=== PATIENT | female | born 1990 | race Caucasian/White ===

== ENCOUNTER 2016-10-16 14:44 | Emergency (ER) | payer OTHER ==
[2016-10-16 15:56] LABS: BASOPHILS 0.4 % (0.0-2.0); EOSINOPHILS 0.9 % (0.0-6.0); EOSINOPHILS# 0.1 X 10^3uL (0.0-0.4); LYMPHOCYTES 7.1 % (20.0-40.0); LYMPHOCYTES# 0.5 X 10^3uL (0.8-3.8); MEAN CELL VOLUME 84.5 fL (80.0-100.0); MEAN CORPUS. HGB CONCENTRATION 34.8 g/dL (32.0-36.0); MEAN CORPUSCULAR HEMOGLOBIN 29.4 pg (29.0-35.0); MEAN PLATELET VOLUME 10.1 fL (7.4-10.4); MONOCYTES 6.5 % (2.0-10.0); MONOCYTES# 0.5 X 10^3uL (0.2-1.0); NEUTROPHILS 85.1 % (54.0-75.0); PLATELET COUNT 233 X 10^3uL (130-440); RED BLOOD COUNT 5.09 X 10^6uL (4.20-6.10); RED CELL DISTRIBUTION WIDTH 12.1 % (11.5-14.5); WHITE BLOOD COUNT 7.1 X 10^3uL (3.9-10.7)
[2016-10-16 16:05] LABS: BLOOD UREA NITROGEN 12 mg/dL (7-17); CALCIUM 8.5 mg/dL (8.4-10.2); CHLORIDE 103 mmol/L (98-107); CREATININE 0.8 mg/dL (0.5-1.0); EST GLOMERULAR FILTRATION RATE > 60 mL/min; GLUCOSE 101 mg/dL (70-100); MAGNESIUM 1.7 mg/dL (1.6-2.3); POTASSIUM 3.5 mmol/L (3.5-5.1); SODIUM 139 mmol/L (137-145)
[2016-10-16] MEDS ORDERED: FAMOTIDINE IN SALINE, ISO-OSM 50 ML IV ONE (16:21)
[2016-10-16] MEDS ORDERED: ONDANSETRON HCL 4 MG/2 ML VIAL ONE (16:21)
[2016-10-16] MEDS ORDERED: ACETAMINOPHEN 325 MG TABLET PO ONE (18:18)
[2016-10-16] MEDS ORDERED: DICYCLOMINE HCL 10 MG CAPSULE PO ONE (18:18)
--- NOTE | 2016-10-16 18:35 | ER NURSING DOCUMENTATION ---
Nurse's Notes [facility] Name:Fernanda Love Age:26 yrs Sex:Female :1990 Arrival Date:10/16/2016 Time:14:44 Bed3 Private MD: Diagnosis:Dysentery;Dehydration;Abdominal Cramps Presentation: 10/16 14:55 Acuity: CHEVY 3 lc 15:03 Presenting complaint: Patient states: THINKS SHE GOT FOOD POISONING ON WEDNESDAY, C/O SL lc NAUSEA AND DIARRHEA SINCE. ABD CRAMPING WITH EPISODES. NO FEVER OR OTHER SYMPTOMS. TOOK IMMODIUM THIS AM. Transition of care: patient was not received from another setting of care. 15:03 Method Of Arrival: Private Vehicle Triage Assessment: 15:07 General: Appears in no apparent distress, Behavior is cooperative. Pain: Complains of lc pain in abdomen Pain At worst was 5 out of 10 on a pain scale. Quality of pain is described as crampy, Pain began 2-3 days ago. GI: Abdomen is non- distended Bowel sounds hypoactive in right upper quadrant, left upper quadrant, right lower quadrant and left lower quadrant Abd is soft. Derm: Skin is pink, warm & dry. Historical: - Allergies: No known drug Allergies; - Home Meds: 1. Loestrin 06/19 (21) oral - PMHx: None; - PSHx: None; - Tetanus: < 10 years. - Ebola Screening: : Patient negative for fever greater than or equal to 101.5 degrees Fahrenheit, and additional compatible Ebola Virus Disease symptoms. Patient denies exposure to infectious person. Patient denies travel to an Ebola-affected area in the 21 days before illness onset. No symptoms or risks identified at this time. . - Immunization history: Flu Vaccine >1 year. - Social history: Smoking status: Patient states was never smoker of tobacco. Screenin:08 Infectious Disease Risk None. Abuse screen: Denies threats or abuse. Denies injuries lc from another. Nutritional screening: No deficits noted. Assessment: 15:08 See Triage Assessment done by same RN. lc 17:53 Reassessment: Patient states feeling better. Patient states symptoms have improved. lc STILL UNABLE TO VOID, 2ND IV, NAUSEA IMPROVED, TOOK CRACKERS AND SPRITE PO NOW.. Vital Signs: 14:53 BP 132 / 89; Pulse 110; Resp 16; Temp 98.9; Pulse Ox 95% ; Weight 54.43 kg; Height 5 jt ft. 2 in. (157.48 cm); Pain 6/10; 16:31 Pulse 96; Resp 16; Pulse Ox 93% ; Pain 2/10; lc 18:33 BP 107 / 59; Pulse 103; Resp 15; Pulse Ox 93% on R/A; Pain 3/10; mk2 14:53 Body Mass Index 21.95 (54.43 kg, 157.48 cm) jt ED Course: 14:46 Patient arrived in ED. lm3 14:53 Iftikhar Garcia MD is Attending Physician. jm 14:55 Naomi Powell, RN is Primary Nurse. 14:55 Triage completed. 15:08 Valuables sent with patient Patient has correct armband on for positive identification. lc Placed in gown. Bed in low position. Call light in reach. Side rails up X 1. Adult w/ patient. Warm blanket given. 15:44 Labs drawn. (by ED staff). Sent per order to lab. Guaiac Collected Guaiac Positive. Physician notified. Inserted peripheral IV: 22 gauge in right antecubital area and blood collected. 15:50 Door closed. Noise minimized. Lights dimmed. Warm blanket given. rs 18:31 Primary Nurse role handed off by Naomi Powell, RN mk2 18:31 Melissa Childs, RN is Primary Nurse. mk2 Administered Medications: 15:46 Drug: NS 0.9% (20 ml/kg) 1000 ml; {Note: 2nd bag hung.} Route: IV; Rate: bolus; Infused lc Over: 1 hrs; Site: right antecubital; Delivery: Powell Tubing; 16:32 Follow up: IV Status: Completed infusion; IV Intake: 1000ml lc 16:10 Drug: Zofran 4 mg; Route: IVP; Infused Over: 2 mins; Site: right hand; lc 16:33 Follow up: Response: Nausea is decreased lc 16:14 Drug: Pepcid 20 mg; Route: IVPB; Infused Over: 15 mins; Site: right antecubital; lc 16:32 Follow up: IV Status: Completed infusion; IV Intake: 100ml lc 17:32 Drug: NS 0.9% 1000 ml; Route: IV; Rate: 1000 ml/hr; Site: right antecubital; mk2 18:32 Follow up: IV Status: Completed infusion; IV Intake: 1000ml mk2 18:08 Drug: Tylenol 975 mg; Route: PO; rs 18:31 Follow up: Response: Pain is decreased mk2 18:09 Drug: Bentyl 10 mg; Route: PO; rs 18:31 Follow up: Response: Pain is decreased mk2 Intake: 16:32 IV: 1000ml; Total: 1000ml. lc 16:32 IV: 100ml; Total: 1100ml. lc 18:32 IV: 1000ml; Total: 2100ml. 2 Outcome: 18:09 Discharge ordered by . rina 18:33 Discharged to home ambulatory. mk2 18:33 Condition: improved 18:33 Discharge instructions given to patient, Instructed on discharge instructions, follow up and referral plans. medication usage, Prescriptions given X 2. 18:33 IV D/Colt 18:34 Patient left the ED. 2 10/17 12:16 Discharge F/U Call: Unable to reach: no answer st 12:52 Discharge F/U Call: Unable to reach: no answer st Signatures: Ninoska Gordillo RN RN Ciarra Hogue RN RN Naomi Jackson RN RN Iftikhar Del Real MD MD jm Kruger, Meg, RN RN [facility] Geno Bates Lisa lm3
--- NOTE | 2016-10-16 18:35 | ER PHYSICIAN DOCUMENTATION ---
Physician Documentation [facility] Name:Fernanda Love Age:26 yrs Sex:Female :1990 Arrival Date:10/16/2016 Time:14:44 Bed3 Private MD: Iftikhar Smith Disposition: 10/16/16 18:09 Discharged to Home/Self Care. Impression: Dysentery, Dehydration, Abdominal Cramps. - Condition is Good. - Discharge Instructions: DIARRHEA, Unk Cause (Adult) Report Pendg. - Prescriptions for Bentyl 20 mg Oral Tablet - take 1 tablet by ORAL route every 6 hours As needed; 20 tablet. Zofran 4 mg Oral Tablet - take 1-2 tablet by ORAL route every 4-6 hours As needed; 10 tablet. - Medical Reconciliation form form. - Follow up: Private Physician; When: As needed; Reason: Continuance of care. - Problem is new. - Symptoms have improved. HPI: 10/16 16:06 This 26 yrs old Female presents to ER via Private Vehicle with complaints of jm Diarrhea. 16:10 The patient presents to the emergency department with nausea, with diarrhea, with jm associated abdominal pain, of the suprapubic area, right lower quadrant and left lower quadrant. Onset: The symptom(s)/episode began/occurred today. Possible causes: unknown. Associated signs and symptoms: Pertinent positives: abdominal pain, diarrhea, GI bleeding. Severity of symptoms: in the emergency department the symptoms are unchanged. The patient has not experienced similar symptoms in the past. The patient has not recently seen a physician. Historical: - Allergies: No known drug Allergies; - Home Meds: 1. Loestrin 06/19 (21) oral - PMHx: None; - PSHx: None; - Tetanus: < 10 years. - Ebola Screening: : Patient negative for fever greater than or equal to 101.5 degrees Fahrenheit, and additional compatible Ebola Virus Disease symptoms. Patient denies exposure to infectious person. Patient denies travel to an Ebola-affected area in the 21 days before illness onset. No symptoms or risks identified at this time. . - Immunization history: Flu Vaccine >1 year. - Social history: Smoking status: Patient states was never smoker of tobacco. ROS: 16:12 Constitutional: Positive for fatigue, malaise, Negative for fever. jm 16:12 Abdomen/GI: Positive for nausea, diarrhea, abdominal cramps, Negative for vomiting. 16:12 : Negative for urinary symptoms, urinary frequency. 16:12 Neuro: Negative for dizziness, headache. 16:12 Psych: Negative for drug dependence, alcohol dependence. Exam: 16:12 Constitutional: The patient appears alert, awake, comfortable. 16:12 Cardiovascular: Rate: tachycardic, Rhythm: regular. 16:12 Respiratory: Respirations: normal, Breath sounds: are normal. 16:12 Abdomen/GI: Palpation: soft, moderate abdominal tenderness, in the suprapubic area, right lower quadrant and left lower quadrant. 16:12 Back: pain, is absent, CVA tenderness, is absent. 16:12 : CVA tenderness, is absent, Bladder: is normal. 16:12 Skin: Appearance: Color: pink, no rash present. Vital Signs: 14:53 BP 132 / 89; Pulse 110; Resp 16; Temp 98.9; Pulse Ox 95% ; Weight 54.43 kg; Height 5 jt ft. 2 in. (157.48 cm); Pain 6/10; 16:31 Pulse 96; Resp 16; Pulse Ox 93% ; Pain 2/10; lc 18:33 BP 107 / 59; Pulse 103; Resp 15; Pulse Ox 93% on R/A; Pain 3/10; mk2 14:53 Body Mass Index 21.95 (54.43 kg, 157.48 cm) jt MDM: 14:53 Patient medically screened. 16:16 Differential diagnosis: viral gastroenteritis, gastroenteritis. Data reviewed: vital jm signs, nurses notes, lab test result(s), and as a result, I will. 16:22 Counseling: I had a detailed discussion with the patient and/or guardian regarding: the historical points, exam findings, and any diagnostic results supporting the discharge/admit diagnosis, lab results, the need for outpatient follow up, with the patient's primary care provider. Medication response: The patient's symptoms have improved. ED course: Labs look great despite some GI bleeding. It appears very mucus like as if her intestine is sloughing off its lining. Pt better after some medications. . 10/16 16:10 Order name: CBC AUTO DIF, MDIF/RMOR IF IND; Complete Time: 16:17 EDMS 10/16 16:11 Order name: BASIC METABOLIC PANEL; Complete Time: 16:17 EDMS 10/16 16:11 Order name: MAGNESIUM; Complete Time: 16:17 EDMS 10/16 16:11 Order name: HCG, URINE; Complete Time: 16:17 EDMS 10/17 06:44 Order name: STOOL CULTURE PANEL EDMS Dispensed Medications: 15:46 Drug: NS 0.9% (20 ml/kg) 1000 ml; {Note: 2nd bag hung.} Route: IV; Rate: bolus; Infused lc Over: 1 hrs; Site: right antecubital; Delivery: [place] Tubing; 16:32 Follow up: IV Status: Completed infusion; IV Intake: 1000ml lc 16:10 Drug: Zofran 4 mg; Route: IVP; Infused Over: 2 mins; Site: right hand; lc 16:33 Follow up: Response: Nausea is decreased lc 16:14 Drug: Pepcid 20 mg; Route: IVPB; Infused Over: 15 mins; Site: right antecubital; lc 16:32 Follow up: IV Status: Completed infusion; IV Intake: 100ml lc 17:32 Drug: NS 0.9% 1000 ml; Route: IV; Rate: 1000 ml/hr; Site: right antecubital; mk2 18:32 Follow up: IV Status: Completed infusion; IV Intake: 1000ml mk2 18:08 Drug: Tylenol 975 mg; Route: PO; rs 18:31 Follow up: Response: Pain is decreased mk2 18:09 Drug: Bentyl 10 mg; Route: PO; rs 18:31 Follow up: Response: Pain is decreased mk2 Signatures: Ciarra Jernigan RN RN rs Coleman, Linda, RN RN lc Meyer, John, MD MD jm Kruger, Meg, RN RN mk2
== END 2016-10-16 18:35 | disposition home or self-care (01) ==
LOC: ER 14:44
DX: A09 Infectious gastroenteritis and colitis, unspecified (principal); E86.0 Dehydration; R10.84 Generalized abdominal pain; R53.83 Other fatigue; R53.81 Other malaise; K92.1 Melena
CPT/HCPCS: 80048; 83735; 84703; 85025; 87188; 87899; 96361; 96365; 96375; 99284; J2405